=== PATIENT | female | born 1975 | race Caucasian/White ===

== ENCOUNTER 2018-07-02 13:55 | Emergency (ER) | payer OTHER ==
[~2018-07-02] VITALS: Ht 165.1 cm; Wt 65.8 kg
[2018-07-02 14:02] VITALS: BP 143/88
[2018-07-02] MEDS ORDERED: KEFLEX250 M1 PO (14:39)
== END 2018-07-02 14:50 | disposition home or self-care (01) ==
LOC: M.ERS 13:55
DX: S69.92XA Unspecified injury of left wrist, hand and finger(s), initial encounter (principal); X58.XXXA Exposure to other specified factors, initial encounter; Y93.89 Activity, other specified; Y92.89 Other specified places as the place of occurrence of the external cause; Y99.8 Other external cause status

== ENCOUNTER 2020-01-10 12:27 | Emergency (ER) | payer OTHER ==
[~2020-01-10] VITALS: Ht 167.6 cm; Wt 63.5 kg
[~2020-01-10 12:27] MED LIST: KEFLEX250 M1 PO
[2020-01-10] MEDS ORDERED: TRIAMCINOLONE A80 G2 TOP (13:23)
[2020-01-10] MEDS ORDERED: PREDNISONE 10 M10 MG PO (13:23)
[2020-01-10 13:46] VITALS: BP 112/80
== END 2020-01-10 13:48 | disposition home or self-care (01) ==
LOC: M.ERS 12:27
DX: S00.86XA Insect bite (nonvenomous) of other part of head, initial encounter (principal); S10.96XA Insect bite of unspecified part of neck, initial encounter; S60.562A Insect bite (nonvenomous) of left hand, initial encounter; S60.561A Insect bite (nonvenomous) of right hand, initial encounter; S00.06XA Insect bite (nonvenomous) of scalp, initial encounter; S90.862A Insect bite (nonvenomous), left foot, initial encounter; S90.861A Insect bite (nonvenomous), right foot, initial encounter; F42.4 Excoriation (skin-picking) disorder; Z98.890 Other specified postprocedural states; W57.XXXA Bitten or stung by nonvenomous insect and other nonvenomous arthropods, initial encounter; Y93.9 Activity, unspecified; Y92.89 Other specified places as the place of occurrence of the external cause; Y99.8 Other external cause status